=== PATIENT | female | born 2000 | race Caucasian/White ===

== ENCOUNTER 2021-12-20 16:48 | Emergency (ER) | payer OTHER ==
[2021-12-20 18:53] LABS: HEMOGLOBIN 13.2 gm/dl (12.3-15.3); RED BLOOD COUNT 4.5 M/UL (4.00-5.10); WHITE BLOOD COUNT 4.1 K/UL (4.5-11.0)
[2021-12-20 19:18] LABS: BUN/CREATININE RATIO 10 (0-10)
== END 2021-12-20 19:40 | disposition home or self-care (01) ==
LOC: ER1 16:48
PROVIDERS: Physician Assistant
DX: J10.1 Influenza due to other identified influenza virus with other respiratory manifestations (principal); Z88.5 Allergy status to narcotic agent; Z20.822 Contact with and (suspected) exposure to COVID-19
CPT/HCPCS: 0240U; 71045; 80048; 84703; 85025; 87081; 87880; 99283